=== PATIENT | female | born 1975 | race Caucasian/White ===

== ENCOUNTER 2022-06-01 16:02 | Emergency (ER) | payer OTHER ==
--- OUTSIDE RECORDS SUMMARY | 2022-06-01 16:05 | XMS REPORT | Continuity of Care Document ---
:[address] [facility] t Address [address] [place] [address] Dr. Singh [address] [place] [id number] Care Team Providers Name Role Phone KEVIN Attending Clinician Unavailable Problems This patient has no known problems. Allergies, Adverse Reactions, Alerts Allergy Allergy Status Severity Reaction(s) Onset Inactive Treating Comm ents Source Name Type Date Date Clinician NO KNOWN Drug Active [facility] ALLERGIE Class [facility] Medications This patient has no known medications. Procedures This patient has no known procedures. Encounters Start End Encounter Admission Attending Care Care Encounter Source Date/Time Date/Time Type Type Clinicians Facility Department ID 2022-06-03 2022-06-03 Outpatient CHELSI COHEN [facility] [id number] [facility] 08:30:00 08:30:00 [facility] Results This patient has no known results.
--- NOTE | 2022-06-01 19:06 | ER ---
Nurse's Notes [facility] Name: Nata Sumner Age: 47 yrs Sex: Female : 1975 Arrival Date: 06/01/2022 Time: 16:08 Bed Waiting Private MD: Diagnosis: Presentation: 06/01 16:18 Chief complaint: Lower abdominal cramping since last night. Denies bleeding/increased hb discharge. Reports positive home test. LMP 04/23. , miscarried Oct 2021.. Coronavirus screen: At this time, the client does not indicate any symptoms associated with coronavirus-19. Ebola Screen: No symptoms or risks identified at this time. Initial Sepsis Screen: Does the patient meet any 2 criteria? No. Patient's initial sepsis screen is negative. Does the patient have a suspected source of infection? No. Patient's initial sepsis screen is negative. Risk Assessment: Do you want to hurt yourself or someone else? Patient reports no desire to harm self or others. Onset of symptoms was May 31, 2022. 16:18 Method Of Arrival: Ambulatory hb 16:18 Acuity: BRAULIO 3 hb SURGERY SPECIALIST: 16:22 LMP 04/23/2022 hb Historical: - Allergies: 16:22 Sulfa (Sulfonamide Antibiotics); hb - Home Meds: 16:22 None [Active]; hb - PMHx: 16:22 None; hb - PSHx: 16:22 None; hb - Immunization history:: Adult Immunizations up to date. - Social history:: Smoking status: Patient denies any tobacco usage or history of. Vital Signs: 16:18 BP 132 / 86; Pulse 89; Resp 16; Temp 98.1; Pulse Ox 99% ; Weight 63.5 kg; Height 5 ft. hb 5 in. (165.10 cm); Pain 5/10; 16:18 Body Mass Index 23.30 (63.50 kg, 165.10 cm) hb ED Course: 16:08 Patient arrived in ED. am2 16:21 Triage completed. hb 16:22 Arm band placed on. hb 18:22 Lazaro Hunter NP is PHCP. pm1 18:22 Elias Landeros MD is Attending Physician. pm1 18:30 Patient's name was called from ER lobby. No response. hb Administered Medications: No medications were administered Outcome: 19:06 Patient left the ED. hb Signatures: Lazaro Hunter NP TIMEKEEPING SUPERVISOR pm1 Summer Bo RN RN Mena Porras am2
[2022-06-01 19:14] VITALS: BP 132/86; TEMP 98.1; O2SAT 99
== END 2022-06-01 19:06 | disposition left against medical advice (07) ==
LOC: ER 16:02
DX: Z02.9 Encounter for administrative examinations, unspecified (principal)
CPT/HCPCS: 99281